=== PATIENT | male | born 1945 | race Caucasian/White ===

== ENCOUNTER 2018-02-21 11:39 | Outpatient (CLI) | payer MEDICARE, OTHER ==
--- NOTE | 2018-02-21 11:54 | RAD ---
TWO VIEW CHEST: History: Dyspnea. FINDINGS: Lung rodas are clear. Heart and mediastinum appear unremarkable. Osseous structures unremarkable. IMPRESSION: No acute abnormality identified. POS: H
== END 2018-02-21 11:40 | disposition home or self-care (01) ==
LOC: RAD 11:39
PROVIDERS: ATTEND Internal Medicine Critical Care Medicine
DX: R06.00 Dyspnea, unspecified (principal)
CPT/HCPCS: 71046

== ENCOUNTER 2018-02-21 14:27 | Outpatient (CLI) | payer MEDICARE, OTHER ==
--- NOTE | 2018-02-21 17:33 | CT ---
CT NECK SOFT TISSUES WITHOUT CONTRAST: Date: 02/21/18 HISTORY: Pain. Difficulty swallowing. R61.0 nocturnal stridor. COMPARISON: CT angiogram of the neck from 2010. FINDINGS: There appears to be a prior right hemithyroidectomy. There is a hypodensity of the left lobe of the t hyroid, which was seen on prior ultrasound. No upper mediastinal adenopathy. The lung apices are clear. Moderate vascular calcifications of the carotid bulbs. No large laryngeal mass is appreciated, althou gh limited without intravenous contrast. There is an area of sclerosis in the T2 vertebral body, unchanged. IMPRESSION: 1. Mass of the left lobe of the thyroid, for which ultrasound is recommended. 2. No acute abnormality of the neck. 3. No adenopathy. POS: KENIA
== END 2018-02-21 14:28 | disposition home or self-care (01) ==
LOC: BICCT 14:27
PROVIDERS: ATTEND Internal Medicine Critical Care Medicine
DX: R06.1 Stridor (principal); E07.89 Other specified disorders of thyroid
CPT/HCPCS: 70490; 71046

== ENCOUNTER 2018-05-06 01:39 | Outpatient (CLI) | payer MEDICARE, OTHER ==
[2018-05-06 16:09] LABS: Hemoglobin 15.9 g/dL (14.0-18.0); Mean Corpuscular HGB CONC 33.2 g/dL (32.0-36.0); Mean Corpuscular Hemoglobin 31.6 pg (27.0-31.0); Mean Corpuscular Volume 95.2 fL (78.0-98.0); Mean Platelet Volume 9.1 fL (7.4-10.4); Platelet Count 275 thou/uL (130-400); RBC Distribution Width 11.4 % (11.5-14.5); Red Blood Cell (RBC) Count 5.04 mill/uL (4.70-6.10); White Blood Cell (WBC) Count 7.9 thou/uL (4.8-10.8)
[2018-05-06 16:11] LABS: Bilirubin Negative (Negative); Blood, Urine Negative (Negative); Clarity CLEAR (Clear); Glucose, Urine (Dipstick) >=1000 mg/dL (Negative); Leukocyte Negative (Negative); Nitrite Negative (Negative); Protein, Urine (Dipstick) Negative (Neg-Trace); Specific Gravity, Urine 1.034 (1.002-1.036); Urobilinogen 0.2 mg/dL (0.2-1.0)
[2018-05-06 16:13] LABS: Bacteria/HPF None Seen HPF (None Seen); Hyaline Casts/LPF 0-3 HYALINE CAST LPF (0-3 Hyaline); RBC/HPF 0-3 HPF (0-3); Squamous Epithelial None Seen HPF (0-3); WBC/HPF None Seen HPF (0-3)
[2018-05-06 16:24] LABS: INR-International Normal Ratio 0.9; PTT 27.7 SEC (22.9-36.1); Prothrombin Time 12.6 SEC (12.0-14.7)
[2018-05-06 16:29] LABS: Anion Gap 14 mmol/L (10-20); BUN (Urea Nitrogen) 14 mg/dL (8.4-25.7); Calc. Creatinine Clearance 0 mL/min (70-130); Calcium 10.1 mg/dL (7.8-10.44); Carbon Dioxide 28 mmol/L (23-31); Chloride 101 mmol/L (98-107); Estimated GFR-MDRD 63; Glucose 356 mg/dL (83-110); Potassium 5.1 mmol/L (3.5-5.1); Sodium 138 mmol/L (136-145)
== END 2018-05-06 01:40 | disposition home or self-care (01) ==
LOC: LABBT 01:39
PROVIDERS: ATTEND Urology
DX: Z01.812 Encounter for preprocedural laboratory examination (principal); N32.0 Bladder-neck obstruction; N40.0 Benign prostatic hyperplasia without lower urinary tract symptoms
CPT/HCPCS: 80048; 81001; 85027; 85610; 85730; 87086

== ENCOUNTER 2018-05-13 06:05 | Inpatient (IN) | payer MEDICARE, OTHER ==
[2018-05-06 15:19] VITALS: BMI 25.7
[2018-05-13] MEDS ORDERED: Fentanyl 100 MCG/2 ML VIAL ONE ×4 (06:37→11:08)
[2018-05-13] MEDS ORDERED: Insulin Regular 300 UNITS/3 ML VIAL ONE (06:57)
[2018-05-13] MEDS ORDERED: Sodium Chloride 0.9% 100 ML ONE (07:20)
[2018-05-13] MEDS ORDERED: cefTRIAXone\\ROCEPHIN 2 GM VIAL ONE (07:20)
[2018-05-13] MEDS ORDERED: B & O ONE ×2 (09:57→12:04)
[2018-05-13] MEDS ORDERED: Morphine 2 MG/ML SYRINGE ONE (10:13)
[2018-05-13 10:36] LABS: Hemoglobin 13.9 g/dL (14.0-18.0)
[2018-05-13] MEDS ORDERED: Hyoscyamine Sulfate SL 0.125 mg Tablet ONE (10:56)
[2018-05-13] MEDS ORDERED: Hyoscyamine Sulfate SL 0.125 mg Tablet SL SCH (11:00)
[2018-05-13] MEDS ORDERED: HYDROmorphone 2 MG/ML VIAL ONE (11:05)
[2018-05-13] MEDS ORDERED: hydrALAZINE 20 MG/ML VIAL ONE (11:11)
[2018-05-13] MEDS ORDERED: Oxybutynin 5 MG TAB ONE ×2 (12:48→12:51)
[2018-05-13] MEDS ORDERED: HYDROmorphone 10 mg/100 ml CADD IVPB PRN (12:58)
[2018-05-13] MEDS ORDERED: Zolpidem Tartrate 5 MG TAB PO PRN (12:58)
[2018-05-13] MEDS ORDERED: diphenhydrAMINE 50 MG/ML VIAL IVP PRN (12:58)
[2018-05-13] MEDS ORDERED: Ondansetron PF 4 MG/2 ML Vial IVP PRN (12:58)
[2018-05-13] MEDS ORDERED: Promethazine HCl 25 MG/ML VIAL IM PRN ×2 (12:58)
[2018-05-13] MEDS ORDERED: HYDROmorphone 2 MG/ML VIAL SLOW IVP PRN (12:58)
[2018-05-13] MEDS ORDERED: diphenhydrAMINE 25 MG CAP PO PRN (12:58)
[2018-05-13] MEDS ORDERED: diphenhydrAMINE 50 MG/ML VIAL IM PRN (12:58)
[2018-05-13] MEDS ORDERED: Naloxone HCl 0.4 mg/ml Vial IV PRN (12:58)
[2018-05-13] MEDS ORDERED: Ondansetron HCl/PF 4 MG/2 ML Vial IVP PRN (12:58)
[2018-05-13] MEDS ORDERED: Promethazine HCl 25 MG/ML VIAL SLOW IVP PRN (12:58)
[2018-05-13] MEDS ORDERED: Communication Order-Pharmacy FS SCH (13:00)
[2018-05-13] MEDS ORDERED: Hyoscyamine Sulfate SL 0.125 mg Tablet SL PRN (16:01)
[2018-05-13] MEDS ORDERED: PROPOFOL 200 MG/20 ML VIAL ONE (17:04)
[2018-05-13] MEDS ORDERED: Ondansetron PF 4 MG/2 ML Vial ONE (17:04)
[2018-05-13] MEDS ORDERED: ePHEDrine 50 MG/ML VIAL ONE (17:04)
[2018-05-13] MEDS ORDERED: Lidocaine 1% PF 5 ML VIAL ONE (17:04)
[2018-05-13] MEDS ORDERED: Dextrose 5% in Water 1,000 ML IV PRN (17:36)
[2018-05-13] MEDS ORDERED: Dextrose 50% Abboject 50 ML SYRINGE SLOW IVP PRN (17:36)
[2018-05-13] MEDS: Insulin Regular 300 UNITS/3 ML VIAL SC PRN (18:57)
[2018-05-13] MEDS: B & O PR SCH (21:35)
--- NOTE | 2018-05-14 01:11 | HP ---
CONSULTING PHYSICIAN: Leobardo Holman MD HISTORY OF PRESENT ILLNESS: The patient is a 72-year-old male with a known history of atherosclerotic coronary artery disease, type 2 diabetes mellitus, and hypothyroidism, who underwent transurethral resection of prostate today. I was consulted for postoperative management as well as management of his type 2 diabetes mellitus, hypertension, atherosclerotic coronary artery disease. The patient underwent uneventful prostate surgery. He has had some evidence of bleeding postoperatively, but this has been controlled by Dr. Chon. He does have a history of atherosclerotic coronary artery disease, type 2 diabetes mellitus, hypothyroidism, previous history of vocal cord paralysis. He notes no medical complaints except for some lower abdominal pain today. Otherwise, no other medical complaints are noted. ALLERGIES: HE HAS NO KNOWN ALLERGIES. CURRENT MEDICATIONS: 1. Metoprolol 25 mg daily. 2. Levothyroxine 50 mcg daily. 3. Plavix 75 mg daily. He is not taking this for 1 week. 4. Lisinopril 5 mg daily. 5. Glimepiride 2 mg p.o. daily. 6. Atorvastatin 80 mg daily. 7. Aspirin 81 mg daily. 8. One multivitamin daily. PAST MEDICAL HISTORY: Positive for atherosclerotic coronary artery disease, status post multiple stents, history of hypothyroidism, type 2 diabetes mellitus. PAST SURGICAL HISTORY: Positive for partial thyroidectomy as well as stents of the coronary arteries. SOCIAL AND PERSONAL HISTORY: He is . He does not smoke. He drinks alcohol socially. PHYSICAL EXAMINATION: VITAL SIGNS: Temperature 98.6, pulse 66, respirations 18, O2 sats 98%, BP 166/67. GENERAL: He is alert, active, does not appear in any significant distress. HEENT: Otherwise unremarkable. NECK: Supple. Full range of motion. No masses. No bruits. LUNGS: Clear. HEART: Reveals a regular rate and rhythm. No murmurs, gallops, or rubs. ABDOMEN: Soft and nontender. Bowel sounds are present and active. No hepatosplenomegaly is noted. There is no evidence of any rebound or guarding. EXTREMITIES: No clubbing, edema, or cyanosis otherwise noted at this time. LABORATORY DATA: His glucoses are slightly elevated. His hemoglobin postoperatively is 13.9. IMPRESSION: A 72-year-old male with, 1. Benign prostatic hypertrophy, status post prostatic resection and some mild postoperative bleeding. 2. History of atherosclerotic coronary artery disease. 3. History of type 2 diabetes mellitus. 4. History of hypothyroidism. PLAN: 1. We will start him on sliding scale insulin. 2. Observe his blood pressure. 3. At this time, restart his home medications except for Plavix and aspirin at this time. 4. We will continue to follow along with you. Job ID: [id number]
[2018-05-14] MEDS: B & O PR SCH ×3 (05:46→21:58)
[2018-05-14] MEDS: Insulin Regular 300 UNITS/3 ML VIAL SC PRN ×4 (06:19→21:30)
[2018-05-14] MEDS ORDERED: Prevnar 13-Val Conj/PF 0.5 ML SYRINGE IM ONE (09:00)
[2018-05-14] MEDS: Docusate 100 MG CAP PO SCH ×2 (09:40→21:27)
[2018-05-14] MEDS: cefTRIAXone\\ROCEPHIN 1 GM in Sodium Chloride 0.9% 100 ML IVPB SCH (09:40)
--- NOTE | 2018-05-14 13:53 | OP ---
DATE OF PROCEDURE: 05/13/2018 PREOPERATIVE DIAGNOSIS: Lower urinary tract symptoms, bladder outlet obstruction. POSTOPERATIVE DIAGNOSIS: Lower urinary tract symptoms, bladder outlet obstruction. PROCEDURES PERFORMED: Cysto and transurethral resection of the prostate. ANESTHESIA: General. ESTIMATED BLOOD LOSS: 250 mL. FINDINGS: He had a very, very large right lobe of the prostate. He had a prior resection of the left lobe and the median lobe 6 to 7 years ago. We only resected the right lobe today. Pathogen is prostatic chips. DRAINS PLACED: A 22-Greenlandic Wheatley three-way with 60 mL in the balloon. FINDINGS: He had somewhat diminished bladder volume. He had a normal-appearing trigone. The left ureteral orifice was easily identified. The right along the trigone was difficult to see, but we were nowhere near the trigone during the resection. There was no evidence of any bladder tumor, foreign body, or stone. He had a prior history of bladder stones. DESCRIPTION OF PROCEDURE: Obtained written and verbal consent from the patient. After receiving IV antibiotics, he was taken to the operating suite. He was placed in the supine position on the treatment table. PlexiPulses were placed in his lower extremities and turned on. He was given a general anesthetic oral intubation. He was placed in dorsal lithotomy position. He was sterilely prepped and draped. Cystoscopy was initially performed with a 22-Greenlandic sheath. This was well lubricated and passed under direct vision through the male urethra into the urinary bladder with a video camera and monitor and a 30-degree lens. The bladder was then systematically observed with the aid of the 30 and both a 70-degree lens and filled and emptied number of times. We then brought in a 24-Greenlandic resectoscope sheath with visual obturator. Required gentle urethral dilatation with Humberto sounds to 26-Greenlandic in order to be able to pass this and was passed under direct vision with a 30-degree lens through the male urethra into that and across the prostatic urethra into the urinary bladder. An Adea resectoscope with gyrus generator, prostate cutting loop, and a 30-degree lens, video camera, and monitor were used. The trigone, bladder neck, and verumontanum were identified. Resection was done on the right lobe starting up at around the 10 to 11 o'clock position coming back towards the capsule. Very, very large prostate lobes. We then resected that lobe down to about the 7 o'clock position. We resected a great deal of tissue, probably some tissue still left, but we resected what appeared to be plenty of tissue in order to get him to adequately urinate and we resected some of the tissue at the apex. This was all completed. We elliked out the chips, reinspected the bladder, used cautery to control hemostasis, placed the Wheatley catheter with aid of a catheter guide. It was placed in gentle handheld traction. It was clear. We then filled the bladder with some water, removed our specimens from the basket and then rechecked and he had gotten a bit bloody again, so we removed the instruments, looked back inside and cauterized a couple of little bleeders down near the verumontanum in this region and then replaced the catheter and remained clear. It was hooked up to continuous bladder irrigation and was secured with a Velcro strap on his right thigh and mild traction after he was taken out of dorsal lithotomy position. At that point, he was awakened and placed on a stretcher and taken to the recovery room. Job ID: [id number]
--- NOTE | 2018-05-14 16:52 | CON ---
DATE OF CONSULTATION: 05/14/2018 Mr. Horner is awake and alert, verbalizes some complaints of pain. Otherwise, he states he is feeling good. PHYSICAL EXAMINATION: VITAL SIGNS: Temperature 98.7, BP 165/74, O2 saturations 92% on room air, pulse 72. LUNGS: Clear. HEART: Reveals a regular rate and rhythm. No murmurs, gallops, or rubs. LABORATORY DATA: His hemoglobin is 13.0. Blood sugars are within reasonable control with sliding scale insulin. IMPRESSION: Status post prostatic resection for transurethral resection of prostate. PLAN: The patient is stable from my standpoint medically, he could be discharged home if so desires. Continue home medications. Job ID: [id number]
[2018-05-15] MEDS: Insulin Regular 300 UNITS/3 ML VIAL SC PRN (06:27)
[2018-05-15] MEDS: B & O PR SCH (07:39)
[2018-05-15] MEDS: cefTRIAXone\\ROCEPHIN 1 GM in Sodium Chloride 0.9% 100 ML IVPB SCH (08:16)
[2018-05-15] MEDS: Docusate 100 MG CAP PO SCH ×2 (08:16→20:13)
[2018-05-15] MEDS ORDERED: HYDROcodone/Acetaminophen 10/325 mg Tablet PO PRN ×2 (08:20)
[2018-05-15] MEDS ORDERED: B & O PR SCH (13:45)
--- NOTE | 2018-05-15 13:48 | CON ---
DATE OF CONSULTATION: 05/15/2018 SUBJECTIVE: Mr. Horner is doing well postoperatively with minimal pain since his TURP. OBJECTIVE: VITAL SIGNS: Temperature 98.5, blood pressure 158/74, and O2 saturations 95%. GENERAL: Alert and active, in no acute distress. LUNGS: Clear. HEART: Reveals no murmurs. LABORATORY DATA: His blood sugars are running a little bit higher than expected anywhere from 201 to 233. IMPRESSION: 1. Status post transurethral resection of prostate. 2. Type 2 diabetes mellitus. 3. History of atherosclerotic coronary artery disease. PLAN: The patient probably will be discharged home in a day. He can restart glimepiride at home. Follow up will be in four weeks. Job ID: [id number]
[2018-05-15] MEDS ORDERED: B & O PR PRN (21:45)
[2018-05-16] MEDS: Insulin Regular 300 UNITS/3 ML VIAL SC PRN ×2 (06:13→11:36)
[2018-05-16] MEDS: Docusate 100 MG CAP PO SCH (08:12)
[2018-05-16] MEDS: cefTRIAXone\\ROCEPHIN 1 GM in Sodium Chloride 0.9% 100 ML IVPB SCH (08:13)
--- NOTE | 2018-05-16 08:19 | PRG ---
DATE OF SERVICE: 05/16/2018 SUBJECTIVE: Mr. Horner is doing well, postoperatively, feels much better. OBJECTIVE: VITAL SIGNS: Temperature 97.8, blood pressure 146/80. LUNGS: Clear. HEART: Reveals no murmur. IMPRESSION: Status post transurethral resection of the prostate. PLAN: The patient will be going home today. May resume his home medications except for Plavix, which has been under control of Dr. Cohn. When he decides, he may start it. Job ID: [id number]
[2018-05-16 11:42] VITALS: BP 148/71; TEMP 97.8
== END 2018-05-16 15:16 | disposition home or self-care (01) | DRG 714 ==
LOC: SDC 06:05 → SURG A 11:37
PROVIDERS: ADMIT Urology; ATTEND Urology
PROC: 0VT08ZZ Resection of Prostate, Via Natural or Artificial Opening Endoscopic (ICD-10-PCS; principal; 2018-05-13)
DX: N40.1 Benign prostatic hyperplasia with lower urinary tract symptoms (principal); N32.0 Bladder-neck obstruction; I25.10 Atherosclerotic heart disease of native coronary artery without angina pectoris; E11.9 Type 2 diabetes mellitus without complications; E03.9 Hypothyroidism, unspecified; I10 Essential (primary) hypertension; Z79.02 Long term (current) use of antithrombotics/antiplatelets; Z79.82 Long term (current) use of aspirin; Z98.61 Coronary angioplasty status
CPT/HCPCS: 36415; 36416; 85018; 86850; 86900; 86901; 88305; J0360; J0696; J1170; J1815; J2001; J2270; J2405; J2704; J3010; J3490; J7050

== ENCOUNTER 2019-01-10 14:57 | Outpatient (CLI) | payer MEDICARE, OTHER ==
--- NOTE | 2019-01-10 15:24 | ULT ---
THYROID ULTRASOUND: HISTORY: Thyroid nodules. Previous right thyroid lobectomy. COMPARISON: 04/15/2013. FINDINGS: Thyroid isthmus measures 0.3 cm. Right thyroid lobe is surgically absent. Left thyroid lobe measures 2.8 x 5.4 x 3.3 cm. Complex cystic lesion in the medial mid left thyroid lobe measures 1.8 x 1.9 x 3.0 cm. Predominantly solid nodule with increased echogenicity measures 3.7 x 1.4 x 2.7 cm. Previously, this nodule measured 3.3 x 1.5 x 1.8 cm. Key Account Representative reports a previous FNA. Correlate with previous fine-needle aspiration of the left thyroid lobe nodule. IMPRESSION: 1. Complex cyst in the right thyroid lobe. 2. Solid nodule with punctate calcifications. If this nodule has been biopsied in the past, correlate with pathologic findings. If the nodule has not been biopsied, fine-needle aspiration should be considered. CODE T Transcribed Date/Time: 01/10/2019 3:33 PM
== END 2019-01-10 14:58 | disposition home or self-care (01) ==
LOC: BICULT 14:57
PROVIDERS: ATTEND Internal Medicine Cardiovascular Disease
DX: E04.1 Nontoxic single thyroid nodule (principal)
CPT/HCPCS: 76536

== ENCOUNTER 2021-10-14 07:59 | Outpatient (CLI) | payer MEDICARE, OTHER | END 2021-10-14 08:00 | disposition home or self-care (01) | LOC: LABBT 07:59 | PROVIDERS: ATTEND Family Medicine | DX: Z20.822 Contact with and (suspected) exposure to COVID-19 (principal) | CPT/HCPCS: 87811 ==

== ENCOUNTER 2021-10-17 12:50 | Outpatient (CLI) | payer MEDICARE, OTHER | END 2021-10-17 12:51 | disposition home or self-care (01) | LOC: RAD 12:50 | PROVIDERS: ATTEND Otolaryngology Plastic Surgery within the Head & Neck | DX: I69.191 Dysphagia following nontraumatic intracerebral hemorrhage (principal); R13.10 Dysphagia, unspecified; J38.01 Paralysis of vocal cords and larynx, unilateral; K22.4 Dyskinesia of esophagus; R19.2 Visible peristalsis | CPT/HCPCS: 74220; 74230 ==

== ENCOUNTER 2022-10-17 04:40 | Emergency (ER) | payer MEDICARE, OTHER ==
[2022-10-17 05:24] LABS: #Basophils 0.1 thou/uL (0.0-0.2); #Eosinphils 0.2 thou/uL (0.0-0.7); #Monocytes 0.7 thou/uL (0.11-0.59); #Neutrophils 4.4 thou/uL (1.40-6.50); %Basophils 1.9 % (0.0-1.0); %Eosinophils 3.4 % (0.0-10.0); %Lymphocytes 19.4 % (21.0-51.0); %Monocytes 10.2 % (0.0-10.0); %Neutrophils 64.8 % (42.0-75.0); Hematocrit 50.4 % (42.0-52.0); Hemoglobin 16.5 g/dL (14.0-18.0); Mean Corpuscular HGB CONC 32.7 g/dL (32.0-36.0); Mean Corpuscular Hemoglobin 31.7 pg (27.0-31.0); Mean Corpuscular Volume 96.7 fl (78.0-98.0); Mean Platelet Volume 10.2 fL (7.4-10.4); Platelet Count 235 10x3/uL (130-400); RBC Distribution Width 12.8 % (11.5-14.5); Red Blood Cell (RBC) Count 5.21 mill/uL (4.70-6.10); White Blood Cell (WBC) Count 6.8 10x3/uL (4.8-10.8)
[2022-10-17 05:46] LABS: ALT (SGPT) 24 U/L (8-55); AST (SGOT) 16 U/L (5-34); Albumin 4.1 g/dL (3.4-4.8); Alkaline Phosphatase 139 U/L (40-110); Anion Gap 16 mmol/L (10-20); BUN (Urea Nitrogen) 13 mg/dL (8.4-25.7); Bilirubin, Total 0.5 mg/dL (0.2-1.2); Calc. Creatinine Clearance 0 mL/min (70-130); Calcium 9.9 mg/dL (7.8-10.44); Carbon Dioxide 24 mmol/L (23-31); Chloride 104 mmol/L (98-107); Estimated GFR 65; Globulin 2.5 g/dL (2.4-3.5); Glucose 204 mg/dL (83-110); Lipase 189 U/L (8-78); Potassium 4.5 mmol/L (3.5-5.1); Protein, Total 6.6 g/dL (5.8-8.1); Sodium 139 mmol/L (136-145)
[2022-10-17 05:50] LABS: Troponin I Less than 0.010 ng/mL (< 0.028)
== END 2022-10-17 07:02 | disposition home or self-care (01) ==
LOC: ERS 04:40
DX: I25.10 Atherosclerotic heart disease of native coronary artery without angina pectoris (principal); R00.2 Palpitations; E11.9 Type 2 diabetes mellitus without complications; I10 Essential (primary) hypertension; Z95.0 Presence of cardiac pacemaker
CPT/HCPCS: 36415; 71045; 80053; 83690; 84484; 85025; 93005

== ENCOUNTER 2023-09-27 08:54 | Outpatient (CLI) | payer MEDICARE, OTHER | END 2023-09-27 08:55 | disposition home or self-care (01) | LOC: SCSRAD 08:54 | PROVIDERS: ATTEND Family Medicine | DX: M25.511 Pain in right shoulder (principal); M89.8X1 Other specified disorders of bone, shoulder; R07.81 Pleurodynia ==